=== PATIENT | female | born 1955 | race Caucasian/White ===

== ENCOUNTER → 2018-07-30 | Outpatient (CLI) | payer OTHER | END | disposition home or self-care (01) | LOC: LAB SHORT 13:37 → LAB 13:37 | PROVIDERS: Hospitalist | DX: Z12.4 Encounter for screening for malignant neoplasm of cervix (principal) | CPT/HCPCS: G0145 ==

== ENCOUNTER 2019-01-30 10:41 | Emergency (ER) | payer SELFPAY ==
[~2019-01-30] VITALS: Ht 160 cm; Wt 72.6 kg
[2019-01-30] MEDS ORDERED: Augmentin 875-1 EACH PO (14:36)
[2019-01-30] MEDS ORDERED: HYDR1TAB94 PO (14:36)
== END 2019-01-30 15:03 | disposition home or self-care (01) ==
LOC: ER 10:41
DX: S61.451A Open bite of right hand, initial encounter (principal); W54.0XXA Bitten by dog, initial encounter
CPT/HCPCS: 12044; 73110; 99283-25